=== PATIENT | male | born 1930 | race Caucasian/White ===

== ENCOUNTER 2017-10-23 19:04 | Observation (INO) | payer MEDICARE ==
--- NOTE | 2017-10-23 19:54 | ERNOTE ---
Medical Problem HPI - Narrative Date of Service: 10/23/17 - General Chief Complaint: General Assessment Time Seen by Provider: 10/23/17 19:20 Source: patient Exam Limitations: no limitations - Immun/Allergies/Home Medications Immunizations: IMMUNIZATION HX Immunizations Up to Date Yes History of Influenza Vaccine Yes Hx Pneumococcal Vaccination More Information Required Allergies/Adverse Reactions: Allergies No Known Allergies Allergy (Verified 01/17/16 15:57) Home Medications: HOME MEDICATIONS Aspirin [Aspirin EC] 325 mg PO DAILY 10/03/12 [Last Taken 10/03/12 09:00] Enalapril/Hydrochlorothiazide [Enalapril-Hctz 10-25 mg Tablet] 1 each PO DAILY 10/03/12 [Last Taken 10/03/12 09:00] Glimepiride 1 mg PO DAILY 10/03/12 [Last Taken 10/03/12 09:00] Metoprolol Tartrate 25 mg PO DAILY 10/03/12 [Last Taken 10/03/12 09:00] Simvastatin [Zocor] 10 mg PO HS 10/03/12 [Last Taken 10/02/12 21:00] Acetaminophen [Tylenol] 500 mg PO DAILY 12/07/14 [Last Taken Unknown] Clopidogrel Bisulfate [Plavix] 75 mg PO DAILY 12/07/14 [Last Taken Unknown] amLODIPine BESYLATE [Norvasc] 5 mg PO DAILY 12/07/14 [Last Taken Unknown] Diphenoxylate HCl/Atrop Sulf [Lomotil] 2.5 mg PO QID PRN #40 tab 12/01/15 [Last Taken Unknown] - History of Present History Narrative: Pt. comes in with c/o diarrhea for a week. Pt. also states that he has burning of his anus due to the acidic stool. Pt. denies any SOB, CP, NVD, fever, abdominal pain, alleviating factors, aggravating factors, or prehospital treatment. Timing: intermittent Severity: mild Modifying Factors - (Improves): Present: other - denies Modifying Factors - (Worsens): Present: other - denies Review of Systems - Review of Systems Constitutional: Present: no symptoms reported. Absent: fever, chills, weakness , fatigue, malaise EYE: Present: no symptoms reported ENT: Present: no symptoms reported Respiratory: Present: no symptoms reported. Absent: shortness of breath, cough , wheezing Cardiology: Present: no symptoms reported. Absent: chest pain, palpitations, edema Gastrointestinal/Abdominal: Present: diarrhea. Absent: nausea, vomiting, constipation, abdominal pain, eating less, drinking less Genitourinary: Present: no symptoms reported. Absent: frequency, decreased urinary output Musculoskeletal: Present: no symptoms reported. Absent: back pain, joint pain Skin: Present: no symptoms reported. Absent: rash, change in hair/nails Neurological: Present: no symptoms reported. Absent: headache, dizziness/light- headedness, numbness, tingling Psych: Present: no symptoms reported. Absent: anxiety, emotional problems All Other Systems: All systems neg except as marked - Patient's Past Medical History Patient History - Medical: Arthritis, Diabetes Type 2, Depression, GERD, Osteoarthritis Patient History - Cardiac/Respiratory: Coronary Heart Disease, COPD Patient History - Cancer: No Hx of Cancer Patient History - Surgical Procedures: Cataracts, Cholecystectomy, Coronary Bypass Surgery - Family History Mother Family History - Medical: , Other Father Family History - Medical: , Other - Social History Living Situations: alone Smoking Status: Former smoker Smoking Stop Date: 09/22/87 Alcohol Use: none Drug Use: none - Immunizations Immunizations Up to Date: Yes Hx Pneumococcal Vaccination: More Information Required to Determine History of Influenza Vaccine: Yes Physical Exam - Physical Exam General Appearance: Present: wd/wn, alert, no apparent distress, other - Pt. very dirty with food and dried feces on body Head Exam: Present: normal inspection, no evidence of injury, no tenderness w palpation Eye Exam: Normal inspection: bilateral Ears, Nose, Throat: Present: normal ENT inspection, normal pharynx Neck: Present: normal inspection, nontender, supple, full range of motion. Absent: lymphadenopathy (R), lymphadenopathy (L) Respiratory: Present: no respiratory distress, normal breath sounds, no accessory muscle use, chest nontender, lungs clear Cardiovascular/Chest: Present: regular rate, rhythm, no murmur, normal peripheral pulses Gastrointestinal/Abdominal: Present: normal bowel sounds, nontender, no organomegaly, distended Back Exam: Present: normal inspection Extremity Exam: Present: normal inspection Neurological Exam: Present: alert, oriented, normal mood/affect, no motor/ sensory deficits, snow maker II-XII nml as tested, normal cerebellar test Skin Exam: Present: warm/dry, other - hemosiderin staining BLE and open scabbed over areas on R treviño with healing as expected ED Progress - Date and Time Seen: Date and Time: 10/23/17 20:57 Pt. xray results could mean that pt. has a partial bowel obstruction however I feel taht it is most likley related to constipation and when the descending colon is cleared out the pt. will have improvement of bowel condition as pt. has no pain. Discussed with Dr Farmer and she agrees with this so will give enema and see if pt. has results 10/23/17 21:58 Pt. with acute on chronic renal failure and mild hyperkalemia likely from dehydration and has un popped popcorn i his rectum that he has been eating alot of so am concerned for other PICA related complications. Discussed with Elizabeth and she agrees with this plan and accepts care of pt. without any uestions or other orders at this time. - Results and Orders Patient's Lab Results:: I have reviewed the patient's lab results. - Vital Signs Patient's Vital Signs:: I have reviewed the patient's vital signs. 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
[2017-10-23 19:57] LABS: Hematocrit 35.1 % (42.0-52.0); Mean Cell Volume 94.6 fl (78-100); Mean Corpuscular Hemoglobin 32.3 pg (27-31); Mean Corpuscular Hgb Conc 34.2 g/dl (32-36); Mean Platelet Volume 9.5 fl (6.0-9.5); Neutrophil # 4.6 K/mm3 (1.3-6.0); Neutrophil % 61.1 % (42-75.0); Platelet Count 170 K/mm3 (150-450); Red Blood Count 3.71 M/mm3 (4.7-6.0); Red Cell Distribution Width 12.9 % (11.5-14.0); White Blood Count 7.6 K/mm3 (4.0-10.5)
[2017-10-23 20:13] LABS: Albumin * 3.9 gm/dl (3.4-5.0); Anion Gap 12.5 mmol/L (6.8-13.8); BUN/Creatinine Ratio 38.2 (9.0-21.6); Bilirubin, Total 0.5 mg/dL (0.0-1.1); Ca. Corrected For Albumin 8.7 mg/dL (8.4-10.2); Calcium * 8.9 mg/dL (7.9-10.9); Carbon Dioxide 23.7 mmol/L (24-32.6); Potassium 5.2 mmol/L (3.4-4.6); Total Protein 7.9 gm/dL (6.2-8.2)
[2017-10-23 21:05] LABS: Urine Bilirubin Negative (NEGATIVE); Urine Blood Negative /ul (NEGATIVE); Urine Ketone Negative (NEGATIVE); Urine Nitrite Negative (NEGATIVE); Urine Protein Negative (NEGATIVE); Urine Specific Gravity 1.025 SP.GR. (1.005-1.030); Urine Urobilinogen Normal (NORMAL); Urine pH 5.5 pH (5.0-7.0)
[2017-10-23] MEDS ORDERED: NORMAL SALINE 1,000 ML IV ONE (21:05)
[2017-10-23 21:22] LABS: Urine Appearance Clear; Urine Color Yellow; Urine RBC None Seen /hpf (0-5); Urine WBC 0-5 /hpf (0-5)
[2017-10-23 21:23] LABS: Urine Bacteria TRACE
--- NOTE | 2017-10-24 00:06 | HP ---
Chief Complaint - Chief Complaint Date of Service: 10/24/17 Time of Service: 00:06 Chief Complaint: Abdominal pain History of Present Illness: 87 years old white male adm to the hospital with reports of abdominal pain, itching at the anus x 5 days. pt have been eating only pop corns in addition to the corn kernels. PMH significant for diabetes, hypertension, venous insufficiency and CKD. In ER X-ray ABD:X-Ray ABD: Dilated loops of small bowel with air and stool seen throughout colon. Findings could relate to partial small bowel obstruction vs ileus. He reported loose stool x 5 days however he still felt some stool was stuck in rectum. He denies nausea, vomiting, melena and Attempts were made to digital disimpact patient. He was initiated with enemas and currently having bowel movements. pt a poor historian, so information obtained from ER records and previous records. pt stated he lives alone, his brother help him sometimes. He his however very unkept and could possible benefit from a wellness visit at home. - Patient's Past Medical History Patient History - Medical: Arthritis, Diabetes Type 2, Depression, GERD, Osteoarthritis Patient History - Cardiac/Respiratory: Coronary Heart Disease, COPD Patient History - Cancer: No Hx of Cancer Patient History - Surgical Procedures: Cataracts, Cholecystectomy, Coronary Bypass Surgery Patient History - Other: None - Family History Mother Family History - Medical: , Other Family History - Cardiac/Respiratory: No pertinent hx, History Unknown Family History - Cancer: Other Father Family History - Medical: , Other Family History - Cardiac/Respiratory: No pertinent hx, History Unknown Family History - Cancer: No pertinent family hx, History Unknown - Social History Living Situations: alone Abuse History: No History of abuse Psych History: Hx of Depression Smoking Status: Former smoker Smoking Stop Date: 09/22/87 Alcohol Use: none Drug Use: none - Immunizations Immunizations Up to Date: Yes Hx Pneumococcal Vaccination: More Information Required to Determine History of Influenza Vaccine: Yes Review Of Systems (GEN) - Review of Systems Generalized/Overall Review: Present: No Symptoms Reported EENTM: Present: No Symptoms Reported Respiratory: Present: No Symptoms Reported Cardiac: Present: No Symptoms Reported Abdominal: Present: Abdominal Pain, Constipation, Diarrhea Genitourinary: Present: No Symptoms Reported Musculoskeletal: Present: No Symptoms Reported Neurological: Present: No Symptoms Reported Skin: Present: Bruising Endocrine: Present: No Symptoms Reported Immunizations: IMMUNIZATION HX Immunizations Up to Date Yes History of Influenza Vaccine Yes Hx Pneumococcal Vaccination More Information Required Allergies/Adverse Reactions: Allergies Allergy/AdvReac Type Severity Reaction Status Date / Time No Known Allergies Allergy Verified 01/17/16 15:57 Home Medications: HOME MEDICATIONS RX: Aspirin [Aspirin EC] 325 mg PO DAILY 10/03/12 [Last Taken 10/23/17 08:00] RX: Simvastatin [Zocor] 10 mg PO HS 10/03/12 [Last Taken 10/22/17 22:00] RX: Clopidogrel Bisulfate [Plavix] 75 mg PO DAILY 12/07/14 [Last Taken 10/23/17 10:00] RX: Levothyroxine Sodium [Synthroid] 25 mcg PO DAILY 10/23/17 [Last Taken 10:00] RX: Enalapril Maleate [Vasotec] 5 mg PO DAILY 10/24/17 [Last Taken 10/23/17 10: 00] RX: Enalapril Maleate [Vasotec] 5 mg PO DAILY tablet 10/24/17 [Last Taken Unknown] RX: Metoprolol Succinate 25 mg PO DAILY 10/24/17 [Last Taken 10/23/17 10:00] RX: amLODIPine BESYLATE [Norvasc] 5 mg PO DAILY tablet 10/24/17 [Last Taken Unknown] Exam - Exam Vital Signs: Vital Signs - Last Taken Temp 35.8 C L 10/23/17 19:09 Pulse 73 10/23/17 23:08 Resp 18 10/23/17 23:08 BP 110/25 10/23/17 23:08 Pulse Ox 98 10/23/17 23:08 Constitutional: Present: Oriented x3, Cooperative, No distress, Obese, Looks Older than stated age ENT Exam: Present: hard of hearing Eye Exam: bilateral eye: normal inspection Neck: Present: non-tender, full range of motion Back Exam: Present: normal inspection, no CVA tenderness Breasts: Present: Exam deferred Respiratory: Present: chest non-tender, lungs clear, normal breath sounds, no respiratory distress Cardiovascular/Chest: Present: normal peripheral pulses, regular rate, rhythm, no chest tenderness Peripheral Pulses: dorsalis-pedis (R): 2+, dorsalis-pedis (L): 2+ Abdomen: Present: Normal bowel sounds, no rebound tenderness, negative Reeder sign, distended /Rectal: Present: Exam deferred Extremity: Present: normal range of motion, no calf tenderness, lower extremity edema, pedal edema, slow capillary refill, swelling Skin Exam: Present: other - BLE cool with bruising, venous insufficiency Neurologic: Present: oriented x 3, abnormal gait, motor weakness Appearance: Present: disheveled, impaired insight Eye contact: Present: good eye contact, normal speech Thoughts: Present: no apparent hallucination, normal mood /affect Diagnostic Studies: Laboratory Results WBC 7.6 K/mm3 (4.0-10.5) 10/23/17 19:56 RBC 3.71 M/mm3 (4.7-6.0) L 10/23/17 19:56 Hgb 12.0 gm/dL (13.5-18.0) L 10/23/17 19:56 Hct 35.1 % (42.0-52.0) L 10/23/17 19:56 MCV 94.6 fl (78-100) 10/23/17 19:56 MCH 32.3 pg (27-31) H 10/23/17 19:56 MCHC 34.2 g/dl (32-36) 10/23/17 19:56 RDW 12.9 % (11.5-14.0) 10/23/17 19:56 Plt Count 170 K/mm3 (150-450) 10/23/17 19:56 MPV 9.5 fl (6.0-9.5) 10/23/17 19:56 Immature Gran % (Auto) 0.10 % (0.001-0.429) 10/23/17 19:56 Immature Gran # (Auto) 0.01 K/mm3 (0.000-0.0310) 10/23/17 19:56 Neutrophils % 61.1 % (42-75.0) 10/23/17 19:56 Lymphocytes % 24.5 % (20-51) 10/23/17 19:56 Monocytes % 10.7 % (0.0-9) H 10/23/17 19:56 Eosinophils % 2.9 % (0.0-3.0) 10/23/17 19:56 Basophils % 0.7 % (0.0-1.0) 10/23/17 19:56 Nucleated RBC % 0.0 k/mm3 (0-1) 10/23/17 19:56 Neutrophils # 4.6 K/mm3 (1.3-6.0) 10/23/17 19:56 Lymphocytes # 1.9 k/mm3 (1.5-3.5) 10/23/17 19:56 Monocytes # 0.8 k/mm3 (0.0-1.0) 10/23/17 19:56 Eosinophils # 0.2 k/mm3 (0.0-0.7) 10/23/17 19:56 Absolute Basophils 0.1 k/mm3 (0.0-0.1) 10/23/17 19:56 Sodium 134 mmol/L (132-142) 10/23/17 19:56 Plasma Sodium 135 mmol/L (130-142) 10/23/17 19:56 Potassium 5.2 mmol/L (3.4-4.6) H 10/23/17 19:56 Chloride 103 mmol/L (97-106) 10/23/17 19:56 Carbon Dioxide 23.7 mmol/L (24-32.6) L 10/23/17 19:56 Anion Gap 12.5 mmol/L (6.8-13.8) 10/23/17 19:56 BUN 79 mg/dL (6-23) H D 10/23/17 19:56 Creatinine 2.07 mg/dL (0.4-1.4) H D 10/23/17 19:56 Est GFR (Non-Af Amer) 33 mL/min (60-130) L D 10/23/17 19:56 BUN/Creatinine Ratio 38.2 (9.0-21.6) H 10/23/17 19:56 Random Glucose 175 mg/dL (70-110) H 10/23/17 19:56 Calcium 8.9 mg/dL (7.9-10.9) 10/23/17 19:56 Calcium Adj for Albumin 8.7 mg/dL (8.4-10.2) 10/23/17 19:56 Total Bilirubin 0.5 mg/dL (0.0-1.1) 10/23/17 19:56 AST 38 U/L (0-48) 10/23/17 19:56 ALT 32 U/L (19-67) 10/23/17 19:56 Alkaline Phosphatase 91 U/L (50-170) 10/23/17 19:56 Total Protein 7.9 gm/dL (6.2-8.2) 10/23/17 19:56 Albumin 3.9 gm/dl (3.4-5.0) 10/23/17 19:56 Amylase 100 U/L (25-115) 10/23/17 19:56 Lipase 178 U/L (73-393) 10/23/17 19:56 Urine Color Yellow 10/23/17 20:42 Urine Appearance Clear 10/23/17 20:42 Urine pH 5.5 pH (5.0-7.0) 10/23/17 20:42 Ur Specific [place] 1.025 SP.GR. (1.005-1.030) 10/23/17 20:42 Urine Protein Negative mg/dL (NEGATIVE) 10/23/17 20:42 Urine Glucose (UA) Negative mg/dL (NEGATIVE) 10/23/17 20:42 Urine Ketones Negative mg/dL (NEGATIVE) 10/23/17 20:42 Urine Blood Negative /ul (NEGATIVE) 10/23/17 20:42 Urine Nitrate Negative (NEGATIVE) 10/23/17 20:42 Urine Bilirubin Negative mg/dl (NEGATIVE) 10/23/17 20:42 Urine Urobilinogen Normal EU/dl (NORMAL) 10/23/17 20:42 Ur Leukocyte Esterase Negative /ul (NEGATIVE) 10/23/17 20:42 Urine RBC None seen /hpf (0-5) 10/23/17 20:42 Urine WBC 0-5 /hpf (0-5) 10/23/17 20:42 Ur Epithelial Cells 0-5 /hpf (0-5) 10/23/17 20:42 Urine Bacteria Trace (NONE) 10/23/17 20:42 Urine Culture Comments Culture to follow 10/23/17 20:42 Stool Occult Blood Negative 10/23/17 20:42 Stl C.difficile Tox A&B Negative (Negative) 10/23/17 20:42 X-Ray ABD: Dilated loops of small bowel with air and stool seen throughout colon. Findings could relate to partial small bowel obstruction vs ileus. Assessment/Plan - Narrative Narrative: Impacted stool in rectum: X-Ray ABD: Dilated loops of small bowel with air and stool seen throughout colon. Findings could relate to partial small bowel obstruction vs ileus. Attempts were made to manually disimpact pt in the ER. Pt stated he eat alot of pop corns including the unpoped ones.His anus was itching and painful He was given enema in ER and currently having bowel movements. stool ova and parasistes pending stool OB negative Diabetes Accu-check AC+HS consistent card diet when diet is resumed, but keep NPO for now. Previous A1C 6.4 Acute on chronic CKD On adm Bun/ Cre 79/2.07 GFR 33 significantly higher than it has ever been on previous adm Bun/Cre 34/1.41 1L NS bolus given Continue with IVF and monitor weight and strict I/O Avoid nephrotoxic agents Hold Enalapril monitor CMP in AM PICA pt stated he like eating popcorns even the unpopped ones. 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
[2017-10-24] MEDS: NORMAL SALINE 1,000 ML IV PRN ×2 (01:28→09:24)
[2017-10-24 06:36] LABS: Albumin * 3.1 gm/dl (3.4-5.0); Anion Gap 13.9 mmol/L (6.8-13.8); BUN/Creatinine Ratio 37.1 (9.0-21.6); Bilirubin, Total 0.4 mg/dL (0.0-1.1); Ca. Corrected For Albumin 8.7 mg/dL (8.4-10.2); Calcium * 8.3 mg/dL (7.9-10.9); Carbon Dioxide 19.6 mmol/L (24-32.6); Potassium 4.5 mmol/L (3.4-4.6); Total Protein 6.3 gm/dL (6.2-8.2)
[2017-10-24] MEDS ORDERED: MAGNESIUM CITRATE 300 ML BTL PO ONE (06:59)
[2017-10-24] MEDS ORDERED: LEVOTHYROXINE SODIUM 25 MCG TABLET PO SCH (07:00)
--- NOTE | 2017-10-24 07:06 | PN ---
Progess Note - Interim Narrative: 10/24/17 07:01 Pt. states feeling better this am. Is having BM/flatus and decreased abdominal pain. VS are concerning only for slightly elevated SBP in the 140's. Pt. alert and oriented. NAD Abd: soft, NT, NABS, no rebound or guarding. A/P: constipation/ileus/abdominal pain, improving. will do mag citrate to finish flushing out colon. d/w pt. the need to eat a variety of foods, but very important to also drink plenty of water. Will start on clear liquid diet this am. Acute on chronic renal failure: improving with gentle hydration with IVF. continue the current bag of NS, but advance his diet to clears. hold his enalapril/hctz. HTN: figure out dose on enalapril and restart this, continue amlodipine. Discharge planning: anticipate d/c later today.
[2017-10-24] MEDS ORDERED: amLODIPine BESYLATE 5 MG TABLET PO SCH (09:00)
[2017-10-24] MEDS ORDERED: PANTOPRAZOLE SODIUM 40 MG TABLET.EC PO SCH (09:00)
[2017-10-24] MEDS ORDERED: CLOPIDOGREL BISULFATE 75 MG TABLET PO SCH (09:00)
[2017-10-24] MEDS ORDERED: PANTOPRAZOLE SODIUM 40 MG in NORMAL SALINE 50 ML IV SCH (09:00)
[2017-10-24] MEDS ORDERED: ASPIRIN 325 MG TABLET.DR PO SCH (09:00)
[2017-10-24] MEDS ORDERED: METOPROLOL TARTRATE 25 MG TABLET PO SCH (09:00)
[2017-10-24 10:57] VITALS: BP 146/68
[2017-10-24] MEDS ORDERED: ENALAPRIL MALEATE 5 MG TABLET PO SCH (11:15)
--- NOTE | 2017-10-24 11:24 | DS ---
(1) Weakness Problem: Acute (2) Balance disorder Problem: Acute (3) Ileus Problem: Acute (4) Impacted stool in rectum Problem: Acute (5) Pica in adults Problem: Chronic (6) Renal failure (ARF), acute on chronic Problem: Chronic Qualifiers: Acute renal failure type: unspecified Chronic kidney disease stage: unspecified stage Qualified Code(s): N17.9 - Acute kidney failure, unspecified ; N18.9 - Chronic kidney disease, unspecified; N18.9 - Chronic kidney disease, unspecified Description of Stay: Pt. was admitted for ileus, stool impaction. Enema and manual disimpaction attempted. Pt. felt better after and had good BS so mag citrate was given and pt. placed on CLD. Due some diarrhea, stool samples were sent but came back negative. Believe the loose stools were due to liquid stool passing around the stool in the colon. ARF on CRF: Cr improved on IVF. Pt. instructed to drink more liquids. will monitor further on outpt at f/u. Weakness/balance disorder: PT evaluation done, will try to get walker for patient to inhance stability and decrease fall risk at home. uses cane presently. Procedures Performed: none Discharge Disposition: Home self care Disposition: Home self-care Condition: Fair Discharge Activity: Activity as tolerated - use walker when ambulating Discharge Diet: Consistent carbs Referrals: Galen Woodson MD [Primary Care Provider] - One Week Complete Home Medications List: Complete Home Medication List: Aspirin [Aspirin EC] 325 mg PO DAILY 10/03/12 Simvastatin [Zocor] 10 mg PO HS 10/03/12 Clopidogrel Bisulfate [Plavix] 75 mg PO DAILY 12/07/14 Levothyroxine Sodium [Synthroid] 25 mcg PO DAILY 10/23/17 Enalapril Maleate [Vasotec] 5 mg PO DAILY 10/24/17 Enalapril Maleate [Vasotec] 5 mg PO DAILY tablet 10/24/17 Metoprolol Succinate 25 mg PO DAILY 10/24/17 Metoprolol Tartrate [Lopressor] 25 mg PO DAILY tablet 10/24/17 amLODIPine BESYLATE [Norvasc] 5 mg PO DAILY tablet 10/24/17
[2017-10-24] MEDS ORDERED: SIMVASTATIN 10 MG TABLET PO SCH (21:00)
== END 2017-10-24 16:35 | disposition home or self-care (01) ==
LOC: ER 19:04 → MS 21:56 → UNDOADMOB 21:56
PROVIDERS: ADMIT Nurse Practitioner; ATTEND Family Medicine
DX: K21.9 Gastro-esophageal reflux disease without esophagitis; I25.2 Old myocardial infarction; Z68.22 Body mass index [BMI] 22.0-22.9, adult; I10 Essential (primary) hypertension; M19.90 Unspecified osteoarthritis, unspecified site; N17.9 Acute kidney failure, unspecified; K56.41 Fecal impaction; R53.1 Weakness; N18.9 Chronic kidney disease, unspecified; J44.9 Chronic obstructive pulmonary disease, unspecified; F50.89 Other specified eating disorder; E11.9 Type 2 diabetes mellitus without complications; K56.7 Ileus, unspecified
CPT/HCPCS: 36415; 74019; 80053; 81001; 82150; 82272; 83690; 85025; 87045; 87046; 87086; 87177; 87209; 87493; 93005; 97161; 99285; G0378; G8978; G8979; G8980

== ENCOUNTER 2019-03-28 00:17 | Inpatient (IN) ==
[2019-03-28] MEDS ORDERED: DEXTROSE 5%-0.5 NORMAL SALINE 1,000 ML IV PRN (00:28)
--- NOTE | 2019-03-28 00:32 | ERNOTE ---
Neuro HPI ER Record Date of Service: 03/28/19 Presenting Symptoms: weakness, confusion Time Seen by Provider: 03/28/19 00:23 Source: patient, EMS Immunizations: IMMUNIZATION HX Immunizations Up to Date Yes History of Influenza Vaccine Yes Hx Pneumococcal Vaccination No Allergies/Adverse Reactions: Allergies Allergy/AdvReac Type Severity Reaction Status Date / Time No Known Allergies Allergy Verified 03/15/19 13:58 Home Medications: HOME MEDICATIONS clopidogrel 75 mg tablet 75 mg PO DAILY #30 tab 05/04/18 [Last Taken Unknown] B cplx 4-vit D3 1,750 unit-C 60 mg-folic acid 1 mg-zinc 12.5 mg tablet 1 tab PO DAILY 05/19/18 [Last Taken Unknown] aspirin 81 mg tablet,delayed release 81 mg PO DAILY 05/19/18 [Last Taken Unknown] acetaminophen ER 650 mg tablet,extended release 650 mg PO Q8H PRN 05/26/18 [Last Taken Unknown] levothyroxine 25 mcg tablet 25 mcg PO DAILY #30 tab 08/24/18 [Last Taken Unknown] Saccharomyces boulardii 250 mg capsule 250 mg PO DAILY 03/15/19 [Last Taken Unknown] atorvastatin 80 mg tablet 80 mg PO DAILY 03/15/19 [Last Taken Unknown] ergocalciferol (vitamin D2) 50,000 unit capsule 50,000 unit PO QWEEK 03/15/19 [Last Taken Unknown] ferrous sulfate 325 mg (65 mg iron) tablet 325 mg PO BID 03/15/19 [Last Taken Unknown] glipizide ER 5 mg tablet, extended release 24 hr 5 mg PO DAILY 03/15/19 [Last Taken Unknown] isosorbide mononitrate ER 30 mg tablet,extended release 24 hr 15 mg PO DAILY tab 03/15/19 [Last Taken Unknown] lisinopril 2.5 mg tablet 2.5 mg PO DAILY 03/15/19 [Last Taken Unknown] loperamide 2 mg capsule 2 mg PO Q4H PRN #30 cap 03/15/19 [Last Taken Unknown] metformin 1,000 mg tablet 1,000 mg PO BID 03/15/19 [Last Taken Unknown] metoprolol succinate ER 50 mg tablet,extended release 24 hr 50 mg PO DAILY #30 tab 03/15/19 [Last Taken Unknown] nitroglycerin 0.4 mg sublingual tablet 0.4 mg SL Q5M PRN 03/15/19 [Last Taken Unknown] sodium bicarbonate 650 mg tablet 1,300 mg PO BID tab 03/15/19 [Last Taken Unknown] - History of Present Illness Narrative: This is an 89-year-old diabetic who takes oral hypoglycemics. About 2 hours ago he became confused. Was slurring his speech. The patient reports he has not really eaten for 3 or 4 days. Has had no appetite. Has still been taking his oral hypoglycemics. EMS was activated and found him to have a blood sugar in the 30s. He was given an amp of D50 and sugar came up to 230s. He is now at 190s. Speaking a little more clearly but he says he is not back to normal. He denies having a headache or blurred vision. He does say that he is been having a little bit of a cough. Denies shortness of breath or chest pain. Denies nausea or vomiting. Patient has had significant hematuria for the last week. He is not sure if he is on any medicines for this. He denies having a fever but really is not sure. No headache or blurred vision. No other complaints at the present time Review of Systems - Review of Systems Constitutional: Present: malaise EYE: Present: no symptoms reported ENT: Present: no symptoms reported Respiratory: Present: See HPI, cough Cardiology: Present: no symptoms reported Gastrointestinal/Abdominal: Present: no symptoms reported Genitourinary: Present: hematuria Musculoskeletal: Present: no symptoms reported Skin: Present: no symptoms reported Neurological: Present: other - Confusion, speech trouble Endocrine: Present: no symptoms reported Hematologic/Lymphatic: Present: no symptoms reported Psych: Present: no symptoms reported All Other Systems: All systems neg except as marked Medical History (Updated 03/17/19 @ 06:42 by Galen Woodson MD) Flu vaccine need (Acute) Diarrhea (Acute) Hypothyroid (Chronic) 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) Ileus (Acute) Impacted stool in rectum (Acute) Weakness (Acute) Balance disorder (Acute) Colonoscopy refused Onset Date: Unknown Coronary artery disease Onset Date: ~05/24/14 DJD (degenerative joint disease) Onset Date: Unknown Depression Onset Date: Unknown GERD (gastroesophageal reflux disease) Onset Date: Unknown Glaucoma Onset Date: Unknown Hyperlipidemia Onset Date: Unknown Hypertension Onset Date: Unknown Mental retardation Onset Date: Unknown Peripheral neuropathy Onset Date: Unknown Tinnitus Onset Date: Unknown Surgical History: Surgical History (Updated 05/19/18 @ 15:05 by Ange Graf RN) History of cataract surgery Onset Date: Unknown Hx of CABG Onset Date: Unknown Family History: Family History (Updated 05/19/18 @ 15:05 by Ange Graf RN) Father Tuberculosis Mother Blood clot in vein Social History: Preferred Language Chinese Smoking Status Former smoker Abuse History No History of abuse Psych History Hx of Depression (Last Updated 03/17/19 @ 06:42 by Galen Woodson MD) No Social History Section defined Physical Exam - Physical Exam General Appearance: Present: wd/wn, alert, no apparent distress Head Exam: Present: normal inspection, no evidence of injury Eye Exam: Normal inspection: bilateral, PERRL: bilateral, EOMI: bilateral Ears, Nose, Throat: Present: normal ENT inspection, normal pharynx, other - Membranes are moist Neck: Present: normal inspection, nontender Respiratory: Present: no respiratory distress, normal breath sounds, chest nontender, lungs clear Cardiovascular/Chest: Present: regular rate, rhythm, no murmur Gastrointestinal/Abdominal: Present: normal bowel sounds, nontender, nondistended, soft Back Exam: Present: normal inspection, normal range of motion Extremity Exam: Present: normal inspection, non-tender, normal range of motion, no edema Neurological Exam: Present: alert, oriented, no motor/sensory deficits, other - Patient speech is still a little bit thick. Actually clears up as him talking to him. Moves all extremities Skin Exam: Present: normal color, warm/dry Lymphatic Exam: Present: no adenopathy Progress - Results and Orders Patient's Lab Results:: I have reviewed the patient's lab results. - Vital Signs Patient's Vital Signs:: I have reviewed the patient's vital signs. - EKG EKG #1 EKG read: Interp. by me EKG Comments: Sinus rhythm ventricular rate of 72. T wave inversion in 3 and aVF. Unchanged from previous. No ST elevation. Q waves in V1 which is normal variant. - Progress/Reassessment Progress:: Improved Plan - Plan Plan: Patient's mental status back to normal per family. Speech is normal per family. He does have a raging bladder infection which we are starting with Rocephin. No fever or flank pain to make me think of [place]. He has an elevated troponin of 0.188. I am uncertain as to the significance of this as he has no chest pain or EKG changes. Apparently he just had an echocardiogram on Friday at [facility]. I spoke with the admitting physician, Dr. Virgen who is graciously agreed to accept the patient, agrees with keeping him on a D5 drip, he just wants the troponin repeated in 3 hours. I will order this Critical care time 30 minutes Departure Clinical Impression: Hypoglycemia - Departure Disposition: Still a patient Condition: Stable Referrals: Galen Woodson MD [Primary Care Provider] -
[2019-03-28 01:00] LABS: Hematocrit 30.9 % (42.0-52.0); Hemoglobin 9.9 gm/dL (13.5-18.0); Mean Cell Volume 98.1 fl (78-100); Mean Corpuscular Hemoglobin 31.4 pg (27-31); Mean Platelet Volume 9.1 fl (8-11.3); Neutrophil # 3.7 K/mm3 (1.3-6.0); Neutrophil % 66.1 % (42-75.0); Platelet Count 149 K/mm3 (150-450); Red Blood Count 3.15 M/mm3 (4.7-6.0); Red Cell Distribution Width 16.1 % (11.5-14.0); White Blood Count 5.6 K/mm3 (4.0-10.5)
[2019-03-28 01:09] LABS: Albumin * 2.8 gm/dl (3.4-5.0); Anion Gap 19.6 mmol/L (6.8-13.8); Bilirubin, Total 0.7 mg/dL (0.0-1.1); Calcium * 7.4 mg/dL (7.9-10.9); Carbon Dioxide 20.1 mmol/L (24-32.6); Potassium 3.7 mmol/L (3.4-4.6); Total Protein 5.6 gm/dL (6.2-8.2)
[2019-03-28 01:10] LABS: Troponin I 0.188 ng/mL (0.00-0.10)
[2019-03-28 01:14] LABS: Urine Bilirubin Negative (NEGATIVE); Urine Blood 250 /ul (NEGATIVE); Urine Protein >=300 mg/dL (NEGATIVE)
[2019-03-28 01:21] LABS: Urine Appearance Turbid (CLEAR)
[2019-03-28 01:22] LABS: Urine Bacteria TRACE; Urine Color Red; Urine RBC >50 /hpf (0-5); Urine WBC 0-5 /hpf (0-5)
[2019-03-28 01:23] LABS: Urine Nitrite Positive (NEGATIVE)
[2019-03-28 01:24] LABS: Urine Ketone 50 mg/dL (NEGATIVE); Urine pH 6.5 pH (5.0-7.0)
[2019-03-28 01:25] LABS: Urine Urobilinogen 4 EU/dl (NORMAL)
[2019-03-28] MEDS ORDERED: cefTRIAXone SODIUM 1,000 MG/100 ML BAG IV ONE (01:26)
[2019-03-28] MEDS ORDERED: NORMAL SALINE 1,000 ML IV PRN (05:05)
[2019-03-28] MEDS ORDERED: ASPIRIN 81 MG TAB.CHEW PO ONE (10:01)
--- NOTE | 2019-03-28 10:23 | HP ---
Chief Complaint - Chief Complaint Date of Service: 03/28/19 Time of Service: 10:06 Chief Complaint: Hypoglycemia, hematuria History of Present Illness: 89-year-old male presented to the hospital with altered mental status. Patient dizzy, was found to be had slurred speech, states he just felt. EMS was called and he was found to have a sugar of 30. He was given an amp of D50 and brought here. While here he was started on D5 half-normal saline drip which improved his sugars and his mentation also improved with this. Initial work-up in the ER showed him to have a fairly significant urinary tract infection with leonid blood. He said this been going on for a little over day. Patient also was found to have an elevated troponin at 0.188 which following repeat came back at 0.333 and then 0.402. Patient denies having any chest pain but has a history of poorly controlled diabetes. EKG changes similar to prior admissions with some inferior and lateral ST depressions but no other acute findings. Patient was admitted to the hospital for urinary tract infection, elevated troponins, hypoglycemia. Patient has significant cardiac history with Multivessel bypass. 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) Ileus (Acute) Impacted stool in rectum (Acute) Weakness (Acute) Balance disorder (Acute) Colonoscopy refused Onset Date: Unknown Coronary artery disease Onset Date: ~05/24/14 DJD (degenerative joint disease) Onset Date: Unknown Depression Onset Date: Unknown GERD (gastroesophageal reflux disease) Onset Date: Unknown Glaucoma Onset Date: Unknown Hyperlipidemia Onset Date: Unknown Hypertension Onset Date: Unknown Mental retardation Onset Date: Unknown Peripheral neuropathy Onset Date: Unknown Tinnitus Onset Date: Unknown Surgical History: Surgical History (Updated 05/19/18 @ 15:05 by Ange Graf RN) History of cataract surgery Onset Date: Unknown Hx of CABG Onset Date: Unknown Family History: Family History (Updated 05/19/18 @ 15:05 by Ange Graf RN) Father Tuberculosis Mother Blood clot in vein Social History: Patient Lives/Resources Home Utilized Occupation retired Preferred Language Zambian Do you have any worship or Yes: Hoahaoism cultural preference? Smoking Status Former smoker Have you smoked in the past 12 No months Do you dip or chew tobacco No Abuse History No History of abuse Psych History Hx of Depression (Last Updated 03/17/19 @ 06:42 by Galen Woodson MD) No Social History Section defined Review Of Systems (GEN) - Review of Systems Generalized/Overall Review: Present: Diaphoresis. Absent: Chills, Fever EENTM: Present: No Symptoms Reported Respiratory: Absent: Cough, Shortness of Breath Cardiac: Absent: Chest Pain, Palpitations Abdominal: Absent: Nausea, Vomiting, Abdominal Pain Genitourinary: Present: Hematuria Musculoskeletal: Present: No Symptoms Reported Neurological: Present: No Symptoms Reported Skin: Present: No Symptoms Reported Endocrine: Present: No Symptoms Reported Immunizations: IMMUNIZATION HX Immunizations Up to Date Yes History of Influenza Vaccine Yes Hx Pneumococcal Vaccination No Allergies/Adverse Reactions: Allergies Allergy/AdvReac Type Severity Reaction Status Date / Time No Known Allergies Allergy Verified 03/28/19 01:53 Home Medications: HOME MEDICATIONS clopidogrel 75 mg tablet 75 mg PO DAILY #30 tab 05/04/18 [Last Taken Unknown] B cplx 4-vit D3 1,750 unit-C 60 mg-folic acid 1 mg-zinc 12.5 mg tablet 1 tab PO DAILY 05/19/18 [Last Taken Unknown] aspirin 81 mg tablet,delayed release 81 mg PO DAILY 05/19/18 [Last Taken Unknown] acetaminophen ER 650 mg tablet,extended release 650 mg PO Q8H PRN 05/26/18 [Last Taken Unknown] levothyroxine 25 mcg tablet 25 mcg PO DAILY #30 tab 08/24/18 [Last Taken Unknown] Saccharomyces boulardii 250 mg capsule 250 mg PO DAILY 03/15/19 [Last Taken Unknown] atorvastatin 80 mg tablet 80 mg PO DAILY 03/15/19 [Last Taken Unknown] ergocalciferol (vitamin D2) 50,000 unit capsule 50,000 unit PO QWEEK 03/15/19 [Last Taken Unknown] ferrous sulfate 325 mg (65 mg iron) tablet 325 mg PO BID 03/15/19 [Last Taken Unknown] glipizide ER 5 mg tablet, extended release 24 hr 5 mg PO DAILY 03/15/19 [Last Taken Unknown] isosorbide mononitrate ER 30 mg tablet,extended release 24 hr 15 mg PO DAILY tab 03/15/19 [Last Taken Unknown] lisinopril 2.5 mg tablet 2.5 mg PO DAILY 03/15/19 [Last Taken Unknown] loperamide 2 mg capsule 2 mg PO Q4H PRN #30 cap 03/15/19 [Last Taken Unknown] metformin 1,000 mg tablet 1,000 mg PO BID 03/15/19 [Last Taken Unknown] metoprolol succinate ER 50 mg tablet,extended release 24 hr 50 mg PO DAILY #30 tab 03/15/19 [Last Taken Unknown] nitroglycerin 0.4 mg sublingual tablet 0.4 mg SL Q5M PRN 03/15/19 [Last Taken Unknown] sodium bicarbonate 650 mg tablet 1,300 mg PO BID tab 03/15/19 [Last Taken Unknown] Exam - Exam Vital Signs: Vital Signs - Last Taken Temp 36.6 C 03/28/19 06:00 Pulse 67 03/28/19 10:00 Resp 18 03/28/19 06:00 BP 124/48 03/28/19 06:00 Pulse Ox 98 03/28/19 06:00 Constitutional: Present: Alert, Oriented x3, Elderly Eye Exam: bilateral eye: normal inspection Neck: Present: non-tender, supple Back Exam: Present: no CVA tenderness Respiratory: Present: lungs clear, normal breath sounds, no respiratory distress Cardiovascular/Chest: Present: regular rate, rhythm, systolic murmur - 2/6 /Rectal: Present: External genitalia normal, Other - Leonid blood meatus Skin Exam: Present: normal color, warm/dry Appearance: Present: disheveled, impaired insight Eye contact: Present: cooperative, normal speech Thoughts: Present: normal thought pattern Diagnostic Studies: Abnormal Lab Results 03/28/19 03/28/19 03/28/19 Range/Units 00:50 00:50 01:05 RBC 3.15 L (4.7-6.0) M/mm3 Hgb 9.9 L (13.5-18.0) gm/dL Hct 30.9 L (42.0-52.0) % MCH 31.4 H (27-31) pg RDW 16.1 H (11.5-14.0) % Plt Count 149 L (150-450) K/mm3 Immature Gran % (Auto) 0.50 H (0.001-0.429) % Lymphocytes # 1.33 L (1.5-3.5) k/mm3 Sodium 143 H (132-142) mmol/L Plasma Sodium 143 H (130-142) mmol/L Chloride 107 H (97-106) mmol/L Carbon Dioxide 20.1 L (24-32.6) mmol/L Anion Gap 19.6 H (6.8-13.8) mmol/L BUN 37 H (6-23) mg/dL Creatinine 2.05 H (0.4-1.4) mg/dL Est GFR (Non-Af Amer) 33 L (60-130) mL/min Random Glucose 128 H (70-110) mg/dL Calcium 7.4 L (7.9-10.9) mg/dL Calcium Adj for Albumin 8.0 L (8.4-10.2) mg/dL Troponin I 0.188 H* (0.00-0.10) ng/mL Total Protein 5.6 L (6.2-8.2) gm/dL Albumin 2.8 L (3.4-5.0) gm/dl Urine Protein >=300 H (NEGATIVE) mg/dL Urine Glucose (UA) 250 H (NEGATIVE) mg/dL Urine Blood 250 H (NEGATIVE) /ul Urine Nitrate Positive H (NEGATIVE) Prot Sulfosalicylic Acd 4+ H (0) mg/dL Urine Urobilinogen 4 H (NORMAL) EU/dl Ur Leukocyte Esterase 500 H (NEGATIVE) /ul Urine RBC >50 H (0-5) /hpf 03/28/19 03/28/19 Range/Units 04:32 07:18 RBC (4.7-6.0) M/mm3 Hgb (13.5-18.0) gm/dL Hct (42.0-52.0) % MCH (27-31) pg RDW (11.5-14.0) % Plt Count (150-450) K/mm3 Immature Gran % (Auto) (0.001-0.429) % Lymphocytes # (1.5-3.5) k/mm3 Sodium (132-142) mmol/L Plasma Sodium (130-142) mmol/L Chloride (97-106) mmol/L Carbon Dioxide (24-32.6) mmol/L Anion Gap (6.8-13.8) mmol/L BUN (6-23) mg/dL Creatinine (0.4-1.4) mg/dL Est GFR (Non-Af Amer) (60-130) mL/min Random Glucose (70-110) mg/dL Calcium (7.9-10.9) mg/dL Calcium Adj for Albumin (8.4-10.2) mg/dL Troponin I 0.333 H* 0.402 H* (0.00-0.10) ng/mL Total Protein (6.2-8.2) gm/dL Albumin (3.4-5.0) gm/dl Urine Protein (NEGATIVE) mg/dL Urine Glucose (UA) (NEGATIVE) mg/dL Urine Blood (NEGATIVE) /ul Urine Nitrate (NEGATIVE) Prot Sulfosalicylic Acd (0) mg/dL Urine Urobilinogen (NORMAL) EU/dl Ur Leukocyte Esterase (NEGATIVE) /ul Urine RBC (0-5) /hpf Laboratory Results WBC 5.6 K/mm3 (4.0-10.5) 03/28/19 00:50 RBC 3.15 M/mm3 (4.7-6.0) L 03/28/19 00:50 Hgb 9.9 gm/dL (13.5-18.0) L 03/28/19 00:50 Hct 30.9 % (42.0-52.0) L 03/28/19 00:50 MCV 98.1 fl (78-100) 03/28/19 00:50 MCH 31.4 pg (27-31) H 03/28/19 00:50 MCHC 32.0 g/dl (32-36) 03/28/19 00:50 RDW 16.1 % (11.5-14.0) H 03/28/19 00:50 Plt Count 149 K/mm3 (150-450) L 03/28/19 00:50 MPV 9.1 fl (8-11.3) 03/28/19 00:50 Immature Gran % (Auto) 0.50 % (0.001-0.429) H 03/28/19 00:50 Immature Gran # (Auto) 0.03 K/mm3 (0.000-0.0310) 03/28/19 00:50 66.1 % (42-75.0) 03/28/19 00:50 23.8 % (20-51) 03/28/19 00:50 7.3 % (0.0-9) 03/28/19 00:50 1.4 % (0.0-3.0) 03/28/19 00:50 0.9 % (0.0-1.0) 03/28/19 00:50 Nucleated RBC % 0.0 k/mm3 (0-1) 03/28/19 00:50 3.7 K/mm3 (1.3-6.0) 03/28/19 00:50 1.33 k/mm3 (1.5-3.5) L 03/28/19 00:50 0.4 k/mm3 (0.0-1.0) 03/28/19 00:50 0.1 k/mm3 (0.0-0.7) 03/28/19 00:50 Absolute Basophils 0.1 k/mm3 (0.0-0.1) 03/28/19 00:50 Sodium 143 mmol/L (132-142) H 03/28/19 00:50 143 mmol/L (130-142) H 03/28/19 00:50 Potassium 3.7 mmol/L (3.4-4.6) 03/28/19 00:50 Chloride 107 mmol/L (97-106) H 03/28/19 00:50 Carbon Dioxide 20.1 mmol/L (24-32.6) L 03/28/19 00:50 19.6 mmol/L (6.8-13.8) H 03/28/19 00:50 BUN 37 mg/dL (6-23) H 03/28/19 00:50 2.05 mg/dL (0.4-1.4) H 03/28/19 00:50 Est GFR (Non-Af Amer) 33 mL/min (60-130) L 03/28/19 00:50 18.0 (9.0-21.6) 03/28/19 00:50 128 mg/dL (70-110) H 03/28/19 00:50 1.5 mmol/L (0.4-2.0) 03/28/19 00:50 Calcium 7.4 mg/dL (7.9-10.9) L 03/28/19 00:50 Calcium Adj for Albumin 8.0 mg/dL (8.4-10.2) L 03/28/19 00:50 0.7 mg/dL (0.0-1.1) 03/28/19 00:50 AST 38 U/L (0-48) 03/28/19 00:50 ALT 34 U/L (19-67) 03/28/19 00:50 84 U/L (50-170) 03/28/19 00:50 0.402 ng/mL (0.00-0.10) H* 03/28/19 07:18 5.6 gm/dL (6.2-8.2) L 03/28/19 00:50 2.8 gm/dl (3.4-5.0) L 03/28/19 00:50 Red 03/28/19 01:05 Turbid (CLEAR) 03/28/19 01:05 6.5 pH (5.0-7.0) 03/28/19 01:05 Ur Specific [place] 1.010 SP.GR. (1.005-1.030) 03/28/19 01:05 >=300 mg/dL (NEGATIVE) H 03/28/19 01:05 250 mg/dL (NEGATIVE) H 03/28/19 01:05 50 mg/dL (NEGATIVE) 03/28/19 01:05 250 /ul (NEGATIVE) H 03/28/19 01:05 Positive (NEGATIVE) H 03/28/19 01:05 Negative mg/dl (NEGATIVE) 03/28/19 01:05 Prot Sulfosalicylic Acd 4+ mg/dL (0) H 03/28/19 01:05 4 EU/dl (NORMAL) H 03/28/19 01:05 Ur Leukocyte Esterase 500 /ul (NEGATIVE) H 03/28/19 01:05 >50 /hpf (0-5) H 03/28/19 01:05 0-5 /hpf (0-5) 03/28/19 01:05 Ur Epithelial Cells None seen /hpf (0-5) 03/28/19 01:05 Trace (NONE) 03/28/19 01:05 Culture to follow 03/28/19 01:05 Assessment/Plan - Narrative Narrative: 89-year-old male with hypoglycemic incident, resolved. Current concerns are gross hematuria with a somewhat decreased hemoglobin from few months ago (baseline is normally around 11.5-12 currently 9.9) as well as elevated troponins that continue to rise- the most recent being 0.402. Due to his leonid hematuria he has not received anything for his suspected NSTEMI as far as antiplatelet therapy. We will go ahead and give him a one-time dose of aspirin 324 chewed. EKG similar to previous tracings recorded, there are some inferior lead ST depression but not significantly different from prior EKGs. Called and discussed this case with the hospitalist at [facility] who accepted transfer for higher level facility care with urology and cardiology available if needed. Will order a CT abdomen/pelvis without contrast at his request. We will go ahead and start a transfusion of 1 unit packed red blood cells also at his request-both of these are appropriate at this time. Patient also has an acute kidney injury with a creatinine 2.05 and a GFR of 33. Normal saline at 125 currently running at this time Patient to be transferred to [facility]. Discussed with the patient who states understanding though again not sure what his baseline mentation is and he is a poor historian. Also our nurse discussed this with the son who stated his agreement to the treatment plan and will likely meet him there. - Assessment/Plan (1) NSTEMI (non-ST elevated myocardial infarction) Problem: Acute (2) Gross hematuria Problem: Acute (3) Hypoglycemia Problem: Acute
--- NOTE | 2019-03-28 10:27 | DS ---
Transfer Discharge Summary - Diagnosis(s)/Problems (1) NSTEMI (non-ST elevated myocardial infarction) Problem: Acute (2) Gross hematuria Problem: Acute (3) Hypoglycemia Problem: Acute - Course Description of Stay: 89-year-old male presented to the hospital with altered mental status. Patient dizzy, was found to be had slurred speech, states he just felt. EMS was called and he was found to have a sugar of 30. He was given an amp of D50 and brought here. While here he was started on D5 half-normal saline drip which improved his sugars and his mentation also improved with this. Initial work-up in the ER showed him to have a fairly significant urinary tract infection with leonid blood. He said this been going on for a little over day. Patient also was found to have an elevated troponin at 0.188 which following repeat came back at 0.333 and then 0.402. Patient denies having any chest pain but has a history of poorly controlled diabetes. EKG changes similar to prior admissions with some inferior and lateral ST depressions but no other acute findings. Patient was admitted to the hospital for urinary tract infection, elevated troponins, hypoglycemia. Hypoglycemic incident, resolved. Current concerns are gross hematuria with a somewhat decreased hemoglobin from few months ago (baseline is normally around 11.5-12 currently 9.9) as well as elevated troponins that continue to rise- the most recent being 0.402. Due to his leonid hematuria he has not received anything for his suspected NSTEMI as far as antiplatelet therapy. We will go ahead and give him a one-time dose of aspirin 324 chewed. EKG similar to previous tracings recorded, there are some inferior lead ST depression but not significantly different from prior EKGs. Called and discussed this case with the hospitalist at [facility] who accepted transfer for higher level facility care with urology and cardiology available if needed. Will order a CT abdomen/pelvis without contrast at his request. We will go ahead and start a transfusion of 1 unit packed red blood cells also at his request-both of these are appropriate at this time. Patient also has an acute kidney injury with a creatinine 2.05 and a GFR of 33. Normal saline at 125 currently running at this time Patient to be transferred to [facility]. Discussed with the patient who states understanding though again not sure what his baseline mentation is and he is a poor historian. Also our nurse discussed this with the son who stated his agreement to the treatment plan and will likely meet him there. Procedures Performed: none - Results and Findings Results and Findings: Laboratory Results - last 24 hr 03/28/19 03/28/19 03/28/19 00:50 00:50 00:50 WBC 5.6 RBC 3.15 L Hgb 9.9 L Hct 30.9 L MCV 98.1 MCH 31.4 H MCHC 32.0 RDW 16.1 H Plt Count 149 L MPV 9.1 Immature Gran % (Auto) 0.50 H Immature Gran # (Auto) 0.03 Neutrophils % 66.1 Lymphocytes % 23.8 Monocytes % 7.3 Eosinophils % 1.4 Basophils % 0.9 Nucleated RBC % 0.0 Neutrophils # 3.7 Lymphocytes # 1.33 L Monocytes # 0.4 Eosinophils # 0.1 Absolute Basophils 0.1 Sodium 143 H Plasma Sodium 143 H Potassium 3.7 Chloride 107 H Carbon Dioxide 20.1 L Anion Gap 19.6 H BUN 37 H Creatinine 2.05 H Est GFR (Non-Af Amer) 33 L BUN/Creatinine Ratio 18.0 Random Glucose 128 H Lactic Acid, Venous 1.5 Calcium 7.4 L Calcium Adj for Albumin 8.0 L Total Bilirubin 0.7 AST 38 ALT 34 Alkaline Phosphatase 84 Troponin I 0.188 H* Total Protein 5.6 L Albumin 2.8 L Urine Color Urine Appearance Urine pH Ur Specific [place] Urine Protein Urine Glucose (UA) Urine Ketones Urine Blood Urine Nitrate Urine Bilirubin Prot Sulfosalicylic Acd Urine Urobilinogen Ur Leukocyte Esterase Urine RBC Urine WBC Ur Epithelial Cells Urine Bacteria Urine Culture Comments 03/28/19 03/28/19 03/28/19 01:05 04:32 07:18 WBC RBC Hgb Hct MCV MCH MCHC RDW Plt Count MPV Immature Gran % (Auto) Immature Gran # (Auto) Neutrophils % Lymphocytes % Monocytes % Eosinophils % Basophils % Nucleated RBC % Neutrophils # Lymphocytes # Monocytes # Eosinophils # Absolute Basophils Sodium Plasma Sodium Potassium Chloride Carbon Dioxide Anion Gap BUN Creatinine Est GFR (Non-Af Amer) BUN/Creatinine Ratio Random Glucose Lactic Acid, Venous Calcium Calcium Adj for Albumin Total Bilirubin AST ALT Alkaline Phosphatase Troponin I 0.333 H* 0.402 H* Total Protein Albumin Urine Color Red Urine Appearance Turbid Urine pH 6.5 Ur Specific [place] 1.010 Urine Protein >=300 H Urine Glucose (UA) 250 H Urine Ketones 50 Urine Blood 250 H Urine Nitrate Positive H Urine Bilirubin Negative Prot Sulfosalicylic Acd 4+ H Urine Urobilinogen 4 H Ur Leukocyte Esterase 500 H Urine RBC >50 H Urine WBC 0-5 Ur Epithelial Cells None seen Urine Bacteria Trace Urine Culture Comments Culture to follow - Medications Medications: Active Medications Sodium Chloride (Sodium Chloride 0.9%) 1,000 mls @ 125 mls/hr IV .Q8H PRN PRN Reason: HYDRATION Stop: 04/27/19 05:06 Last Admin: 03/28/19 05:17 Dose: 125 mls/hr Documented by: Discontinued Medications Dextrose/Sodium Chloride (Dextrose 5%-0.45%Ns) 1,000 mls @ 125 mls/hr IV .Q8H PRN PRN Reason: HYDRATION Stop: 04/27/19 00:29 Last Infusion: 03/28/19 05:17 Dose: 0 mls/hr Documented by: Ceftriaxone Sodium (Rocephin 1000 Mg Er Piggyback) 1,000 mg in 100 mls @ 200 mls/hr IV ONCE ONE Stop: 03/28/19 01:55 Last Infusion: 03/28/19 02:05 Dose: Infused Documented by: - Disposition Disposition: Short Term Hospital Inpatient Condition: Stable
[2019-03-28 15:21] VITALS: BP 127/37
== END 2019-03-28 13:10 | disposition short-term general hospital (02) | DRG 281 ==
LOC: ER 00:17 → MS 01:34
PROVIDERS: ADMIT Family Medicine; ATTEND Family Medicine
DX: G31.84 Mild cognitive impairment of uncertain or unknown etiology; N17.9 Acute kidney failure, unspecified; E11.649 Type 2 diabetes mellitus with hypoglycemia without coma; Z79.84 Long term (current) use of oral hypoglycemic drugs; R31.0 Gross hematuria; I21.4 Non-ST elevation (NSTEMI) myocardial infarction; E03.9 Hypothyroidism, unspecified; N39.0 Urinary tract infection, site not specified; Z87.891 Personal history of nicotine dependence; D64.9 Anemia, unspecified; I10 Essential (primary) hypertension
CPT/HCPCS: 36415; 71010; 71045; 74176; 80053; 81001; 83605; 84484; 85025; 86850; 87040; 87086; 93005; 96360; 99285; P9016

== ENCOUNTER 2020-08-20 02:35 | Observation (INO) ==
[2020-08-20] MEDS ORDERED: NORMAL SALINE 1,000 ML IV ONE (02:51)
[2020-08-20] MEDS ORDERED: ONDANSETRON HCL/PF 2 MG/ML VIAL IV ONE (02:51)
--- NOTE | 2020-08-20 02:56 | ERNOTE ---
Medical Problem HPI - Narrative Date of Service: 08/20/20 - General Time Seen by Provider: 08/20/20 02:43 Source: patient, family Exam Limitations: no limitations - Immun/Allergies/Home Medications Immunizations: IMMUNIZATION HX Immunizations Up to Date Yes History of Influenza Vaccine No Hx Pneumococcal Vaccination No Allergies/Adverse Reactions: Allergies No Known Allergies Allergy (Verified 08/20/20 03:02) Home Medications: HOME MEDICATIONS aspirin 81 mg tablet,delayed release 81 mg PO DAILY 05/19/18 [Last Taken Unknown] ferrous sulfate 325 mg (65 mg iron) tablet 325 mg PO BID 03/15/19 [Last Taken Unknown] nitroglycerin 0.4 mg sublingual tablet 0.4 mg SL Q5M PRN 03/15/19 [Last Taken Unknown] Furosemide 20 mg PO DAILY 05/03/19 [Last Taken Unknown] blood sugar diagnostic See Rx Instructions .ROUTE .MEDSUPPLY #400 ea 03/14/20 [Last Taken Unknown] lancets See Rx Instructions .ROUTE .MEDSUPPLY #400 ea 03/14/20 [Last Taken Unknown] cholecalciferol (vitamin D3) 50 mcg (2,000 unit) tablet 25 mcg PO TID 04/04/20 [Last Taken Unknown] isosorbide mononitrate 30 mg tablet,extended release 24 hr 30 mg PO DAILY tab 04/04/20 [Last Taken Unknown] magnesium oxide 1,200 mg PO TID 04/04/20 [Last Taken Unknown] metoprolol succinate 25 mg tablet,extended release 24 hr 25 mg PO DAILY 04/04/20 [Last Taken Unknown] vitamin B complex 1 tab PO DAILY 04/04/20 [Last Taken Unknown] metformin 1,000 mg tablet 1,000 mg PO BID #60 tab 07/31/20 [Last Taken Unknown] atorvastatin 80 mg tablet 80 mg PO DAILY #30 tab 08/11/20 [Last Taken Unknown] Acetaminophen [Tylenol Arthritis] 650 mg PO DAILY 08/20/20 [Last Taken Unknown] Cyanocobalamin (Vitamin B-12) [Vitamin B12] 1,000 mcg PO DAILY 08/20/20 [Last Taken Unknown] - History of Present History Narrative: Patient is an 89-year-old male with a history of CAD status post bypass, recent admission for elevated troponin, CHF and diabetes presenting with 2 days of chills, cough, lightheadedness upon standing and an episode of vomiting tonight. His son is present at bedside to assist with history. Son lives with him and is his primary flue cleaner. They state that symptoms started on Friday with chills. He has had lightheadedness, particularly upon standing and increasing weakness. Patient endorses a nonproductive cough. Tonight at approximately 1 AM he had an episode of vomiting. Son reports that last bowel movement was on Friday. Patient denies any chest pain, shortness of breath, abdominal pain, or headaches. Review of Systems - Review of Systems Constitutional: Present: chills EYE: Present: no symptoms reported ENT: Present: no symptoms reported Respiratory: Present: cough Cardiology: Present: no symptoms reported Gastrointestinal/Abdominal: Present: nausea, vomiting, constipation Genitourinary: Present: no symptoms reported Musculoskeletal: Present: no symptoms reported Skin: Present: no symptoms reported Neurological: Present: dizziness/light-headedness, weakness Endocrine: Present: no symptoms reported Hematologic/Lymphatic: Present: no symptoms reported Psych: Present: no symptoms reported All Other Systems: All systems neg except as marked Medical History (Last Reviewed 08/20/20 @ 03:02 by Elida Ojeda RN) Bladder cancer (Chronic) Flu vaccine need (Acute) Diarrhea (Acute) Hypothyroid (Chronic) I do not see that he is on medication for it. 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) Ileus (Acute) Impacted stool in rectum (Acute) Weakness (Acute) Balance disorder (Acute) Colonoscopy refused Onset Date: Unknown Coronary artery disease Onset Date: ~05/24/14 DJD (degenerative joint disease) Onset Date: Unknown Depression Onset Date: Unknown GERD (gastroesophageal reflux disease) Onset Date: Unknown Glaucoma Onset Date: Unknown Hyperlipidemia Onset Date: Unknown Hypertension Onset Date: Unknown Mental retardation Onset Date: Unknown Peripheral neuropathy Onset Date: Unknown Tinnitus Onset Date: Unknown Surgical History: Surgical History (Last Reviewed 08/20/20 @ 03:02 by Elida Ojeda RN) Bladder tumor History of cataract surgery Onset Date: Unknown Hx of CABG Onset Date: Unknown Family History: Family History (Last Reviewed 08/20/20 @ 03:02 by Elida Ojeda RN) Father Tuberculosis Mother Blood clot in vein Social History: (Last Reviewed 08/20/20 @ 03:02 by Elida Ojeda RN) Social History: Marital status: Single current occupational status: retired Service: No Tobacco: Smoking Status: Former smoker Alcohol: alcohol intake: never Substance Use: substance use type: does not use Dietary Habits: caffeine: No Physical Exam - Physical Exam General Appearance: Present: other - Frail-appearing 89-year-old male laying in bed, in no apparent distress Head Exam: Present: no evidence of injury Eye Exam: PERRL: bilateral, EOMI: bilateral Neck: Present: supple Respiratory: Present: no respiratory distress, normal breath sounds, no accessory muscle use, lungs clear Cardiovascular/Chest: Present: regular rate, rhythm, no murmur, normal peripheral pulses Peripheral Pulses: N=norm/S=strong/W=weak/B=bound/A=absent: Radial (R): Normal Gastrointestinal/Abdominal: Present: nontender, nondistended, soft Back Exam: Present: normal range of motion Extremity Exam: Present: no edema Neurological Exam: Present: alert, normal mood/affect, no motor/sensory deficits Skin Exam: Present: normal color, warm/dry Progress - Results and Orders Patient's Lab Results:: I have reviewed the patient's lab results. Results and Orders: Laboratory Tests 08/20/20 08/20/20 08/20/20 03:00 03:00 03:00 WBC 8.8 Hgb 9.8 L Hct 30.5 L Plt Count 126 L Sodium 133 Potassium 4.2 Chloride 98 Carbon Dioxide 23.0 L Anion Gap 16.2 H BUN 34 H Creatinine 1.70 H Est GFR (Non-Af Amer) 41 L Random Glucose 173 H Lactic Acid, Venous 2.6 H* Calcium 9.3 Magnesium 2.0 Total Bilirubin 0.7 AST 48 ALT 43 Alkaline Phosphatase 106 Troponin I 0.623 H* Total Protein 7.5 Albumin 3.2 L Lipase 93 Urine Color Urine Appearance Urine pH Ur Specific [place] Urine Protein Urine Glucose (UA) Urine Ketones Urine Blood Urine Nitrate Urine Urobilinogen Ur Leukocyte Esterase Urine RBC Urine WBC Ur Epithelial Cells Urine Bacteria 08/20/20 03:42 WBC Hgb Hct Plt Count Sodium Potassium Chloride Carbon Dioxide Anion Gap BUN Creatinine Est GFR (Non-Af Amer) Random Glucose Lactic Acid, Venous Calcium Magnesium Total Bilirubin AST ALT Alkaline Phosphatase Troponin I Total Protein Albumin Lipase Urine Color Yellow Urine Appearance Cloudy Urine pH 5.5 Ur Specific [place] 1.025 Urine Protein 30 H Urine Glucose (UA) Negative Urine Ketones Negative Urine Blood 50 H Urine Nitrate Negative Urine Urobilinogen Normal Ur Leukocyte Esterase 500 H Urine RBC 25-50 H Urine WBC >50 H Ur Epithelial Cells 0-5 Urine Bacteria 2+ H Laboratory Tests 08/20/20 08/20/20 05:25 05:25 Lactic Acid, Venous 1.8 Troponin I 0.632 H* - Vital Signs Patient's Vital Signs:: I have reviewed the patient's vital signs. - EKG EKG #1 EKG read: Interp. by me EKG Comments: Normal sinus rhythm with first-degree AV block, T wave inversions in leads II, III, aVF, V5 and V6. No ST elevations or depressions. Compared to prior EKG from 06/30/2020, PVC no longer present, T wave inversion is more prominent. EKG #2 EKG: NSR EKG read: Interp. by me EKG Comments: Normal sinus rhythm, rate of 69 bpm, stable T wave inversions in leads II, III, aVF, V5 and V6 without significant changes compared to prior - X-Ray X-Ray #1 X-Ray: chest Interpretation: Interp. by me X-ray Comments: Chest x-ray: Portable single view. No visualized consolidations. No masses noted. Normal cardiac silhouette. Visualized evidence of prior sternotomy. Visualized bones without any evidence of fracture. Trachea midline. Soft tissue normal. Impression: No acute cardiopulmonary process. Plan - Plan Plan: Patient is an 89-year-old male presenting with 2 to 3 days of chills, cough, lightheadedness, and an episode of vomiting tonight. Differential diagnosis includes viral syndrome including COVID-19 versus ACS versus UTI versus bacterial pneumonia. There is no focal abdominal tenderness to palpation and no distention, do not suspect bowel obstruction, hepatobiliary process. EKG obtained given history of recent NSTEMI and demonstrates normal sinus rhythm with T wave inversion inferiorly and laterally consistent with prior ischemia, no ST elevation or depression currently. Labs and chest x-ray obtained. Patient given Zofran and 1 L normal saline bolus. Orthostatic vital signs obtained and within normal limits. Chest x-ray reviewed and does not demonstrate any acute cardiopulmonary process. Labs obtained, no leukocytosis, stable anemia noted. Stable CKD without significant electrolyte abnormality. Troponin is significantly elevated at 0.623 and lactic is 2.6. Previous troponin on 07/19 was 0.042. Cath urine was obtained by nursing and is consistent with infection. Troponin could be related to demand from infection. Will obtain 2-hour repeat to trend this. If troponin stable to downtrending, should be able to keep in house, if troponin continues to increase, will likely need transfer for cardiology services. We will also obtain COVID-19 testing. COVID-19 test negative. Troponin mildly increased to 0.632, and lactic acid normalized now. Blood pressures have remained stable around 100-1 tens over 40s. Typically, patient does have a low diastolic blood pressure and this is not outside the norm for him. Discussed case with Dr. Nichols who feels comfortable admitting this patient. Will admit to [facility] Departure Clinical Impression: Elevated troponin level UTI (urinary tract infection) Qualifiers: Urinary tract infection type: acute cystitis Hematuria presence: without hematuria Qualified Code(s): N30.00 - Acute cystitis without hematuria - Departure Disposition: Short Term Hospital Inpatient Condition: Serious Referrals: Oriana Cervantes MD [Primary Care Provider] -
[2020-08-20 03:09] LABS: Hematocrit 30.5 % (42.0-52.0); Hemoglobin 9.8 gm/dL (13.5-18.0); Mean Cell Volume 103.7 fl (78-100); Mean Corpuscular Hemoglobin 33.3 pg (27-31); Mean Corpuscular Hgb Conc 32.1 g/dl (32-36); Mean Platelet Volume 9.5 fl (8-11.3); Neutrophil # 6.5 K/mm3 (1.3-6.0); Neutrophil % 73.6 % (42-75.0); Platelet Count 126 K/mm3 (150-450); Red Blood Count 2.94 M/mm3 (4.7-6.0); Red Cell Distribution Width 14.6 % (11.5-14.0); White Blood Count 8.8 K/mm3 (4.0-10.5)
[2020-08-20 03:28] LABS: Albumin * 3.2 gm/dl (3.4-5.0); Anion Gap 16.2 mmol/L (6.8-13.8); Bilirubin, Total 0.7 mg/dL (0.0-1.1); Ca. Corrected For Albumin 9.6 mg/dL (8.4-10.2); Calcium * 9.3 mg/dL (7.9-10.9); Potassium 4.2 mmol/L (3.4-4.6); Total Protein 7.5 gm/dL (6.2-8.2)
[2020-08-20 03:32] LABS: Troponin I 0.623 ng/mL (0.00-0.10)
[2020-08-20 03:53] LABS: Urine Appearance Cloudy (CLEAR); Urine Bacteria 2+; Urine Bilirubin Negative (NEGATIVE); Urine Blood 50 /ul (NEGATIVE); Urine Color Yellow; Urine Ketone Negative (NEGATIVE); Urine Nitrite Negative (NEGATIVE); Urine Protein 30 mg/dL (NEGATIVE); Urine RBC 25-50 /hpf (0-5); Urine Specific Gravity 1.025 SP.GR. (1.005-1.030); Urine Urobilinogen Normal (NORMAL); Urine WBC >50 /hpf (0-5); Urine pH 5.5 pH (5.0-7.0)
[2020-08-20] MEDS ORDERED: cefTRIAXone SODIUM 1,000 MG/100 ML BAG IV ONE (03:59)
[2020-08-20] MEDS ORDERED: NORMAL SALINE 500 ML IV ONE (04:34)
[2020-08-20] MEDS ORDERED: ISOSORBIDE MONONITRATE 30 MG TAB.SR.24H PO SCH (10:30)
[2020-08-20] MEDS ORDERED: FUROSEMIDE 20 MG TABLET PO SCH (10:30)
[2020-08-20] MEDS ORDERED: ASPIRIN 81 MG TABLET.DR PO SCH (10:30)
[2020-08-20] MEDS ORDERED: METOPROLOL SUCCINATE 25 MG TABLET.SA PO SCH (10:30)
[2020-08-20] MEDS ORDERED: FERROUS SULFATE 325 MG TABLET PO SCH (10:30)
--- NOTE | 2020-08-20 12:38 | HPDIS ---
Chief Complaint - Chief Complaint Date of Service: 08/20/20 Time of Service: 12:24 Chief Complaint: Dizziness History of Present Illness: Holden is an 89 yo male who presented to the [facility] ER with dizziness and nausea. He has a recent history of CAD status post bypass with recent admission for elevated troponin. Symptoms started two days ago with chills, lightheadedness, dizzy, nausea, and weakness. He had an episode of vomiting at 1 AM prior to arriving at the ER. He lives with his son at home. Medical History (Last Reviewed 08/20/20 @ 03:02 by Elida Ojeda RN) Bladder cancer (Chronic) Flu vaccine need (Acute) Diarrhea (Acute) Hypothyroid (Chronic) I do not see that he is on medication for it. 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) Ileus (Acute) Impacted stool in rectum (Acute) Weakness (Acute) Balance disorder (Acute) Colonoscopy refused Onset Date: Unknown Coronary artery disease Onset Date: ~05/24/14 DJD (degenerative joint disease) Onset Date: Unknown Depression Onset Date: Unknown GERD (gastroesophageal reflux disease) Onset Date: Unknown Glaucoma Onset Date: Unknown Hyperlipidemia Onset Date: Unknown Hypertension Onset Date: Unknown Mental retardation Onset Date: Unknown Peripheral neuropathy Onset Date: Unknown Tinnitus Onset Date: Unknown Surgical History: Surgical History (Last Reviewed 08/20/20 @ 03:02 by Elida Ojeda RN) Bladder tumor History of cataract surgery Onset Date: Unknown Hx of CABG Onset Date: Unknown Family History: Family History (Last Reviewed 08/20/20 @ 03:02 by Elida Ojeda RN) Father Tuberculosis Mother Blood clot in vein Social History: (Last Reviewed 08/20/20 @ 03:02 by Elida Ojeda RN) Social History: Marital status: Single current occupational status: retired Service: No Tobacco: Smoking Status: Former smoker Alcohol: alcohol intake: never Substance Use: substance use type: does not use Dietary Habits: caffeine: No Review Of Systems (GEN) - Review of Systems Generalized/Overall Review: Present: Weakness, Chills, Fatigue. Absent: Fever EENTM: Present: No Symptoms Reported Respiratory: Present: Cough. Absent: Shortness of Breath Cardiac: Absent: Chest Pain, Edema, Palpitations, Syncope Abdominal: Present: Nausea, Vomiting. Absent: Hematemesis, Abdominal Pain Genitourinary: Absent: Burning, Frequency Musculoskeletal: Present: No Symptoms Reported Neurological: Present: No Symptoms Reported Skin: Present: No Symptoms Reported Immunizations: IMMUNIZATION HX Immunizations Up to Date Yes History of Influenza Vaccine Yes Hx Pneumococcal Vaccination No Allergies/Adverse Reactions: Allergies Allergy/AdvReac Type Severity Reaction Status Date / Time No Known Allergies Allergy Verified 08/20/20 03:02 Home Medications: HOME MEDICATIONS aspirin 81 mg tablet,delayed release 81 mg PO DAILY 05/19/18 [Last Taken Unknown] ferrous sulfate 325 mg (65 mg iron) tablet 325 mg PO BID 03/15/19 [Last Taken Unknown] nitroglycerin 0.4 mg sublingual tablet 0.4 mg SL Q5M PRN 03/15/19 [Last Taken Unknown] Furosemide 20 mg PO DAILY 05/03/19 [Last Taken Unknown] blood sugar diagnostic See Rx Instructions .ROUTE .MEDSUPPLY #400 ea 03/14/20 [Last Taken Unknown] lancets See Rx Instructions .ROUTE .MEDSUPPLY #400 ea 03/14/20 [Last Taken Unknown] cholecalciferol (vitamin D3) 50 mcg (2,000 unit) tablet 25 mcg PO TID 04/04/20 [Last Taken Unknown] isosorbide mononitrate 30 mg tablet,extended release 24 hr 30 mg PO DAILY tab 04/04/20 [Last Taken Unknown] magnesium oxide 1,200 mg PO TID 04/04/20 [Last Taken Unknown] metoprolol succinate 25 mg tablet,extended release 24 hr 25 mg PO DAILY 04/04/20 [Last Taken Unknown] vitamin B complex 1 tab PO DAILY 04/04/20 [Last Taken Unknown] metformin 1,000 mg tablet 1,000 mg PO BID #60 tab 07/31/20 [Last Taken Unknown] atorvastatin 80 mg tablet 80 mg PO DAILY #30 tab 08/11/20 [Last Taken Unknown] Acetaminophen [Tylenol Arthritis] 650 mg PO DAILY 08/20/20 [Last Taken Unknown] Ciprofloxacin HCl [Cipro] 500 mg PO BID #20 tab 08/20/20 [Last Taken Unknown] Cyanocobalamin (Vitamin B-12) [Vitamin B12] 1,000 mcg PO DAILY 08/20/20 [Last Taken Unknown] Exam - Exam Vital Signs: Vital Signs - Last Taken Temp 36.8 C 08/20/20 06:30 Pulse 73 08/20/20 06:30 Resp 18 08/20/20 06:30 BP 104/43 08/20/20 06:30 Pulse Ox 100 08/20/20 06:30 Constitutional: Present: Alert, Cooperative, Other - oriented x 2 ENT Exam: Present: hearing grossly normal Eye Exam: bilateral eye: normal inspection Respiratory: Present: lungs clear, normal breath sounds, no respiratory distress Cardiovascular/Chest: Present: regular rate, rhythm, no murmur Peripheral Pulses: radial (R): 2+, radial (L): 2+ Abdomen: Present: Normal bowel sounds, soft, nontender, nondistended Extremity: Present: normal inspection Skin Exam: Present: normal color, warm/dry, no cyanosis Lymphatic: Present: no adenopathy Appearance: Present: disheveled Eye contact: Present: cooperative, good eye contact Diagnostic Studies: Abnormal Lab Results 08/20/20 08/20/20 08/20/20 Range/Units 03:00 03:00 03:00 RBC 2.94 L (4.7-6.0) M/mm3 Hgb 9.8 L (13.5-18.0) gm/dL Hct 30.5 L (42.0-52.0) % MCV 103.7 H (78-100) fl MCH 33.3 H (27-31) pg RDW 14.6 H (11.5-14.0) % Plt Count 126 L (150-450) K/mm3 Lymphocytes % 14.6 L (20-51) % Monocytes % 11.2 H (0.0-9) % Neutrophils # 6.5 H (1.3-6.0) K/mm3 Lymphocytes # 1.28 L (1.5-3.5) k/mm3 Carbon Dioxide 23.0 L (24-32.6) mmol/L Anion Gap 16.2 H (6.8-13.8) mmol/L BUN 34 H (6-23) mg/dL Creatinine 1.70 H (0.4-1.4) mg/dL Est GFR (Non-Af Amer) 41 L (60-130) mL/min Random Glucose 173 H (70-110) mg/dL Lactic Acid, Venous 2.6 H* (0.4-2.0) mmol/L Troponin I 0.623 H* (0.00-0.10) ng/mL Albumin 3.2 L (3.4-5.0) gm/dl Urine Protein (NEGATIVE) mg/dL Urine Blood (NEGATIVE) /ul Ur Leukocyte Esterase (NEGATIVE) /ul Urine RBC (0-5) /hpf Urine WBC (0-5) /hpf Urine Bacteria (NONE) 08/20/20 08/20/20 08/20/20 Range/Units 03:42 05:25 10:41 RBC (4.7-6.0) M/mm3 Hgb (13.5-18.0) gm/dL Hct (42.0-52.0) % MCV (78-100) fl MCH (27-31) pg RDW (11.5-14.0) % Plt Count (150-450) K/mm3 Lymphocytes % (20-51) % Monocytes % (0.0-9) % Neutrophils # (1.3-6.0) K/mm3 Lymphocytes # (1.5-3.5) k/mm3 Carbon Dioxide (24-32.6) mmol/L Anion Gap (6.8-13.8) mmol/L BUN (6-23) mg/dL Creatinine (0.4-1.4) mg/dL Est GFR (Non-Af Amer) (60-130) mL/min Random Glucose (70-110) mg/dL Lactic Acid, Venous (0.4-2.0) mmol/L Troponin I 0.632 H* 0.504 H* (0.00-0.10) ng/mL Albumin (3.4-5.0) gm/dl Urine Protein 30 H (NEGATIVE) mg/dL Urine Blood 50 H (NEGATIVE) /ul Ur Leukocyte Esterase 500 H (NEGATIVE) /ul Urine RBC 25-50 H (0-5) /hpf Urine WBC >50 H (0-5) /hpf Urine Bacteria 2+ H (NONE) Laboratory Results WBC 8.8 K/mm3 (4.0-10.5) 08/20/20 03:00 RBC 2.94 M/mm3 (4.7-6.0) L 08/20/20 03:00 Hgb 9.8 gm/dL (13.5-18.0) L 08/20/20 03:00 Hct 30.5 % (42.0-52.0) L 08/20/20 03:00 MCV 103.7 fl (78-100) H 08/20/20 03:00 MCH 33.3 pg (27-31) H 08/20/20 03:00 MCHC 32.1 g/dl (32-36) 08/20/20 03:00 RDW 14.6 % (11.5-14.0) H 08/20/20 03:00 Plt Count 126 K/mm3 (150-450) L 08/20/20 03:00 MPV 9.5 fl (8-11.3) 08/20/20 03:00 Immature Gran % (Auto) 0.30 % (0.001-0.429) 08/20/20 03:00 Immature Gran # (Auto) 0.03 K/mm3 (0.000-0.0310) 08/20/20 03:00 Neutrophils % 73.6 % (42-75.0) 08/20/20 03:00 Lymphocytes % 14.6 % (20-51) L 08/20/20 03:00 Monocytes % 11.2 % (0.0-9) H 08/20/20 03:00 Eosinophils % 0.0 % (0.0-3.0) 08/20/20 03:00 Basophils % 0.3 % (0.0-1.0) 08/20/20 03:00 Nucleated RBC % 0.0 k/mm3 (0-1) 08/20/20 03:00 Neutrophils # 6.5 K/mm3 (1.3-6.0) H 08/20/20 03:00 Lymphocytes # 1.28 k/mm3 (1.5-3.5) L 08/20/20 03:00 Monocytes # 1.0 k/mm3 (0.0-1.0) 08/20/20 03:00 Eosinophils # 0.0 k/mm3 (0.0-0.7) 08/20/20 03:00 Absolute Basophils 0.0 k/mm3 (0.0-0.1) 08/20/20 03:00 Sodium 133 mmol/L (132-142) 08/20/20 03:00 Plasma Sodium 134 mmol/L (130-142) 08/20/20 03:00 Potassium 4.2 mmol/L (3.4-4.6) 08/20/20 03:00 Chloride 98 mmol/L (97-106) 08/20/20 03:00 Carbon Dioxide 23.0 mmol/L (24-32.6) L 08/20/20 03:00 Anion Gap 16.2 mmol/L (6.8-13.8) H 08/20/20 03:00 BUN 34 mg/dL (6-23) H 08/20/20 03:00 Creatinine 1.70 mg/dL (0.4-1.4) H 08/20/20 03:00 Est GFR (Non-Af Amer) 41 mL/min (60-130) L 08/20/20 03:00 BUN/Creatinine Ratio 20.0 (9.0-21.6) 08/20/20 03:00 Random Glucose 173 mg/dL (70-110) H 08/20/20 03:00 Lactic Acid, Venous 1.8 mmol/L (0.4-2.0) 08/20/20 05:25 Calcium 9.3 mg/dL (7.9-10.9) 08/20/20 03:00 Calcium Adj for Albumin 9.6 mg/dL (8.4-10.2) 08/20/20 03:00 Magnesium 2.0 mg/dL (1.2-2.8) 08/20/20 03:00 Total Bilirubin 0.7 mg/dL (0.0-1.1) 08/20/20 03:00 AST 48 U/L (0-48) 08/20/20 03:00 ALT 43 U/L (19-67) 08/20/20 03:00 Alkaline Phosphatase 106 U/L (50-170) 08/20/20 03:00 Troponin I 0.504 ng/mL (0.00-0.10) H* 08/20/20 10:41 Total Protein 7.5 gm/dL (6.2-8.2) 08/20/20 03:00 Albumin 3.2 gm/dl (3.4-5.0) L 08/20/20 03:00 Lipase 93 U/L (73-393) 08/20/20 03:00 Procalcitonin 0.27 ng/mL (0.05-0.50) 08/20/20 03:00 Urine Color Yellow 08/20/20 03:42 Urine Appearance Cloudy (CLEAR) 08/20/20 03:42 Urine pH 5.5 pH (5.0-7.0) 08/20/20 03:42 Ur Specific [place] 1.025 SP.GR. (1.005-1.030) 08/20/20 03:42 Urine Protein 30 mg/dL (NEGATIVE) H 08/20/20 03:42 Urine Glucose (UA) Negative mg/dL (NEGATIVE) 08/20/20 03:42 Urine Ketones Negative mg/dL (NEGATIVE) 08/20/20 03:42 Urine Blood 50 /ul (NEGATIVE) H 08/20/20 03:42 Urine Nitrate Negative (NEGATIVE) 08/20/20 03:42 Urine Bilirubin Negative mg/dl (NEGATIVE) 08/20/20 03:42 Prot Sulfosalicylic Acd 1+ mg/dL (0) 08/20/20 03:42 Urine Urobilinogen Normal EU/dl (NORMAL) 08/20/20 03:42 Ur Leukocyte Esterase 500 /ul (NEGATIVE) H 08/20/20 03:42 Urine RBC 25-50 /hpf (0-5) H 08/20/20 03:42 Urine WBC >50 /hpf (0-5) H 08/20/20 03:42 Ur Epithelial Cells 0-5 /hpf (0-5) 08/20/20 03:42 Urine Bacteria 2+ (NONE) H 08/20/20 03:42 Urine Culture Comments Culture to follow 08/20/20 03:42 SARS-CoV-2 (PCR) Not detected (NotDetected) 08/20/20 04:25 Assessment/Plan - Narrative Narrative: Holden is an 89 yo male with Hx of CAD with bypass and recently elevated troponins. Troponins are still elevated at 0.6 although he denies cardiac symptoms. Symptoms of chills, nausea, weakness, and fatigue appear to be UTI based on UA. Culture is still pending at this time. He was given Rocephin in the ER. Will admit to observation and repeat troponin. Will monitor today and discharge to home if repeat troponin is not elevating. This may be chronically elevated from his CAD. If there are no acute cardiac concerns he may be treated as an outpatient for UTI. - Assessment/Plan (1) Urinary tract infection Problem: Acute Qualifiers: Urinary tract infection type: acute cystitis Hematuria presence: without hematuria Qualified Code(s): N30.00 - Acute cystitis without hematuria (2) Elevated troponin level Problem: Acute (1) Urinary tract infection Problem: Acute Qualifiers: Urinary tract infection type: acute cystitis Hematuria presence: without hematuria Qualified Code(s): N30.00 - Acute cystitis without hematuria (2) Elevated troponin level Problem: Chronic Date of Discharge:: 08/20/20 Hospital Course: Holden is an 89 yo male admitted for elevated troponin. He was admitted to observation and this was rechecked in 6 hours and was a little lower. I believe it is chronically elevated. Holden does not have any symptoms of acute coronary syndrome. His symptoms of weakness, fatigue, chills, and nausea appear to be from a urinary tract infection. Will treat with Ciprofloxacin 500mg PO BID, culture still pending at time of discharge. Procedures Performed: none Results and Findings: Lab Pending Results 08/20/20 03:00: WBC 8.8, RBC 2.94 L, Hgb 9.8 L, Hct 30.5 L, MCV 103.7 H, MCH 33.3 H, MCHC 32.1, RDW 14.6 H, Plt Count 126 L, MPV 9.5, Immature Gran % (Auto) 0.30, Immature Gran # (Auto) 0.03, Neutrophils % 73.6, Lymphocytes % 14.6 L, Monocytes % 11.2 H, Eosinophils % 0.0, Basophils % 0.3, Nucleated RBC % 0.0, Neutrophils # 6.5 H, Lymphocytes # 1.28 L, Monocytes # 1.0, Eosinophils # 0.0, Absolute Basophils 0.0 08/20/20 03:00: Sodium 133, Plasma Sodium 134, Potassium 4.2, Chloride 98, Carbon Dioxide 23.0 L, Anion Gap 16.2 H, BUN 34 H, Creatinine 1.70 H, Est GFR (Non-Af Amer) 41 L, BUN/Creatinine Ratio 20.0, Random Glucose 173 H, Calcium 9.3, Calcium Adj for Albumin 9.6, Magnesium 2.0, Total Bilirubin 0.7, AST 48, ALT 43, Alkaline Phosphatase 106, Troponin I 0.623 H*, Total Protein 7.5, Albumin 3.2 L, Lipase 93 08/20/20 03:00: Lactic Acid, Venous 2.6 H* 08/20/20 03:00: Procalcitonin 0.27 08/20/20 03:42: Urine Color Yellow, Urine Appearance Cloudy, Urine pH 5.5, Ur Specific [place] 1.025, Urine Protein 30 H, Urine Glucose (UA) Negative, Urine Ketones Negative, Urine Blood 50 H, Urine Nitrate Negative, Urine Bilirubin Ne gative, Prot Sulfosalicylic Acd 1+, Urine Urobilinogen Normal, Ur Leukocyte Esterase 500 H, Urine RBC 25-50 H, Urine WBC >50 H, Ur Epithelial Cells 0-5, Urine Bacteria 2+ H, Urine Culture Comments Culture to follow 08/20/20 04:25: SARS-CoV-2 (PCR) Not detected 08/20/20 05:25: Lactic Acid, Venous 1.8 08/20/20 05:25: Troponin I 0.632 H* 08/20/20 10:41: Troponin I 0.504 H* Discharge Location: Home Disposition: Home self-care Condition: Fair Discharge Activity: Activity as tolerated Discharge Diet: General/regular food Referrals: Oriana Cervantes MD [Primary Care Provider] - One Week Problem Oriented Discharge Instructions to Patient/Family: Urinary Tract Infection, Adult, [id number] Prescriptions (Any new or edited meds): Ciprofloxacin HCl [Cipro] 500 mg PO BID #20 tab Transmission Status: Pending to [facility] Complete Home Medications List: Complete Home Medication List: aspirin 81 mg tablet,delayed release 81 mg PO DAILY 05/19/18 ferrous sulfate 325 mg (65 mg iron) tablet 325 mg PO BID 03/15/19 nitroglycerin 0.4 mg sublingual tablet 0.4 mg SL Q5M PRN 03/15/19 Furosemide 20 mg PO DAILY 05/03/19 blood sugar diagnostic See Rx Instructions .ROUTE .MEDSUPPLY #400 ea 03/14/20 lancets See Rx Instructions .ROUTE .MEDSUPPLY #400 ea 03/14/20 cholecalciferol (vitamin D3) 50 mcg (2,000 unit) tablet 25 mcg PO TID 04/04/20 isosorbide mononitrate 30 mg tablet,extended release 24 hr 30 mg PO DAILY tab 04/04/20 magnesium oxide 1,200 mg PO TID 04/04/20 metoprolol succinate 25 mg tablet,extended release 24 hr 25 mg PO DAILY 04/04/20 vitamin B complex 1 tab PO DAILY 04/04/20 metformin 1,000 mg tablet 1,000 mg PO BID #60 tab 07/31/20 atorvastatin 80 mg tablet 80 mg PO DAILY #30 tab 08/11/20 Acetaminophen [Tylenol Arthritis] 650 mg PO DAILY 08/20/20 Ciprofloxacin HCl [Cipro] 500 mg PO BID #20 tab 08/20/20 Cyanocobalamin (Vitamin B-12) [Vitamin B12] 1,000 mcg PO DAILY 08/20/20
[2020-08-20] MEDS ORDERED: MAGNESIUM OXIDE 400 MG TABLET PO SCH (13:00)
[2020-08-20 14:14] VITALS: BP 117/60
[2020-08-20] MEDS ORDERED: ROSUVASTATIN CALCIUM 20 MG TABLET PO SCH (21:00)
[2020-08-21] MEDS ORDERED: ACETAMINOPHEN 650 MG TABLET PO SCH (09:00)
[2020-08-21] MEDS ORDERED: CYANOCOBALAMIN 1,000 MCG TABLET PO SCH (09:00)
== END 2020-08-20 14:30 | disposition home or self-care (01) ==
LOC: ER 02:35 → INTOOBSV 06:04 → MS 06:04
PROVIDERS: ADMIT Family Medicine; ATTEND Family Medicine
DX: N30.00 Acute cystitis without hematuria; R42 Dizziness and giddiness; E11.9 Type 2 diabetes mellitus without complications; I10 Essential (primary) hypertension; Z79.84 Long term (current) use of oral hypoglycemic drugs; Z87.891 Personal history of nicotine dependence; R77.8 Other specified abnormalities of plasma proteins; I25.2 Old myocardial infarction; R53.1 Weakness